=== PATIENT | female | born 1940 | race Caucasian/White ===

== ENCOUNTER 2019-10-16 09:34 | Outpatient (CLI) | payer MEDICARE, SELFPAY ==
--- NOTE | ~2019-10-16 | DEXA_ITS ---
Bone Density Report Name: Nai Medeiros Age: 79 Sex: Female Ethnicity: White Date of : 1940 Indication: postmenopausal; height loss; Referring Provider: DONNY FIELD Study: Bone densitometry was performed. Exam Date: October 16, 2019 Accession number: [id number] Bone Density: Region BMD T-score Z-score Classification AP Spine (L1-L4) 0.976 -0.6 1.9 Normal Femoral Neck (Left) 0.650 -1.8 0.4 Osteopenia Total Hip (Left) 0.820 -1.0 1.0 Normal Total Hip Bilateral Avg 0.841 -0.8 1.2 Normal Femoral Neck (Right) 0.654 -1.8 0.5 Osteopenia Total Hip (Right) 0.862 -0.7 1.3 Normal World Health Organization criteria for BMD impression classify patients as: Normal (T-score at or above -1.0), Osteopenia (T-score between -1.0 and -2.5), or Osteoporosis (T-score at or below -2.5). 10-year Fracture Risk(1): Major Osteoporotic Fracture 12% Hip Fracture 3.2% Reported Risk Factors: [place] (), Neck BMD=0.654, BMI=21.7 (1) FRAX(R) Version 3.08. Fracture probability calculated for an untreated patient. Fracture probability may be lower if the patient has received treatment. Clinical Information Provided by Patient: Has used the following medications: Vitamin D, Calcium Patient maximum height was 62 Menopause Age: 51 Drinks caffeinated beverages Onset of menses at age 13 Number of children 2 Impression: The patient has low bone mass, based on the Left Femoral Neck T-score. The patient has an estimated ten-year risk of hip fracture of 3.2% and an estimated ten-year risk of major fracture of 12%, based on the WHO FRAX algorithm. Discussion: BONE DENSITY IS LOW AT ONE OR MORE SKELETAL SITES. THE PATIENT'S BMD AND CLINICAL RISK FACTORS CONTRIBUTE TO THIS PATIENT'S INCREASED RISK OF FRACTURE. This patient's lowest T-score is low at one or more skeletal sites. It meets the World Health Organization's (WHO) criteria for ?low bone mass? (T-score between -1.0 and -2.5). The patient's 10-year risk of hip fracture as calculated by FRAX exceeds the threshold where pharmacological therapy is recommended by the National Osteoporosis Foundation (NOF). However, all treatment decisions require clinical judgment and consideration of individual patient factors, including patient preferences, comorbidities, previous drug use, risk factors not captured in the FRAX model (e.g., frailty, falls, vitamin D deficiency, increased bone turnover, interval significant decline in bone density) and possible under or overestimation of fracture risk by FRAX. The patient should follow a healthful lifestyle (good nutrition with adequate calcium and vitamin D, and appropriate weight-bearing exercise). Follow-Up: Consider a repeat BMD and Vertebral Fracture Assessment (VFA) exam in 2 years or sooner if medically necessary, to reassess this
--- NOTE | ~2019-10-16 | MM_ITS ---
EXAMINATION: MM screening patric BI w patrica HISTORY: Screening mammogram TECHNIQUE: Craniocaudal and mediolateral oblique 3-D tomosynthesis images were obtained and synthetic 2-D images were generated. CAD analysis was submitted and interpreted. COMPARISON: Comparison to multiple prior studies sequentially, with oldest reviewed study dated 03/24. BREAST PARENCHYMAL COMPOSITION: There are scattered areas of fibroglandular density. FINDINGS: There is no evidence of suspicious mass, calcification, or architectural distortion to sugg est malignancy in either breast. There has been no suspicious interval change. IMPRESSION: 1. No mammographic evidence of malignancy. 2. Recommend routine screening mammography in one year. BI-RADS Category 1: Negative Reviewed, dictated and finalized at location A.
== END 2019-10-16 09:35 | disposition home or self-care (01) ==
PROVIDERS: PCP Internal Medicine; Visit Provider Obstetrics & Gynecology
DX: Z12.31 Encounter for screening mammogram for malignant neoplasm of breast (principal); Z78.0 Asymptomatic menopausal state; M85.852 Other specified disorders of bone density and structure, left thigh; M85.851 Other specified disorders of bone density and structure, right thigh
CPT/HCPCS: 77063; 77067; 77080

== ENCOUNTER → 2020-11-10 11:35 | Outpatient (CLI) | payer MEDICARE, SELFPAY ==
--- NOTE | ~2020-11-10 | MM_ITS ---
EXAMINATION: MM screening patric BI w patrica HISTORY: Screening mammogram TECHNIQUE: Craniocaudal and mediolateral oblique 3-D tomosynthesis images were obtained and synthetic 2-D images were generated. CAD analysis was submitted and interpreted. COMPARISON: 10/16/2019 bilateral digital screening mammogram 06/13/2018 diagnostic left mammogram and limited left breast ultrasound examination 06/04/2018 bilateral digital screening mammogram BREAST PARENCHYMAL COMPOSITION: There are scattered areas of fibroglandular density. FINDINGS: There is focal asymmetry in the mid and upper outer right breast. Otherwise there is no evidence of suspicious mass, calcification, or architectural distortion to sugg est malignancy in either breast. There has been no other suspicious interval change. IMPRESSION: 1. Mammographic asymmetry in the mid to upper outer right breast 2. Diagnostic right mammogram is recommended with ultrasound if required BI-RADS Category 0: Incomplete: Needs additional imaging evaluation. Reviewed, dictated and finalized at location A.
== END ==
PROVIDERS: PCP Internal Medicine; Visit Provider Obstetrics & Gynecology
DX: Z12.31 Encounter for screening mammogram for malignant neoplasm of breast (principal); R92.8 Other abnormal and inconclusive findings on diagnostic imaging of breast
CPT/HCPCS: 77063; 77067

== ENCOUNTER 2020-11-12 11:14 | Outpatient (CLI) | payer MEDICARE, SELFPAY ==
--- NOTE | ~2020-11-12 | MMUS_ITS ---
EXAMINATION: MM diagnostic mammo unilat RT, US breast RT limited HISTORY: Focal mammographic asymmetry in the mid upper outer right breast TECHNIQUE: Additional 3-D tomosynthesis images of the right breast were performed and synthetic 2-D i mages were generated. CAD analysis was submitted and interpreted. High resolution upper outer and low er-outer right breast ultrasound was performed. COMPARISON: 11/10/2020 bilateral digital screening mammogram FINDINGS: MAMMOGRAPHIC FINDINGS: There is subtle focal asymmetry/architectural distortion in the mid to upper outer right breast. ULTRASOUND: Right breast 11:00 3 cm from nipple: There is an irregular hypoechoic 4.9 mm lesion with posterior sh adowing, suspicious for small malignancy. Ultrasound-guided biopsy is recommended. No other significant sonographic finding is noted in the outer half of the right breast. IMPRESSION: 1. 5 mm irregular hypoechoic sonographic mass with posterior shadowing at 11:00 3 cm from nipple 2. Ultrasound-guided biopsy is recommended. BI-RADS category 4, suspicious findings. Dr. Rodriguez telephoned the report and ultrasound-guided biopsy recommendation to Dr. Diaz's Medical As sistant's voicemail on 11/12/2020 at 1320 hours Reviewed, dictated and finalized at location A. IMPRESSION: 1. 5 mm irregular hypoechoic sonographic mass with posterior shadowing at 11:00 3 cm from nipple 2. Ultrasound-guided biopsy is recommended. BI-RADS category 4, suspicious findings. Dr. Rodriguez telephoned the report and ultrasound-guided biopsy recommendation to Truong Diaz's Spinner [employer]draulic's voicemail on 11/12/2020 at 1320 hours
== END 2020-11-12 11:15 | disposition home or self-care (01) ==
LOC: ANHIMG 11:18
PROVIDERS: PCP Internal Medicine; Visit Provider Obstetrics & Gynecology
DX: N63.11 Unspecified lump in the right breast, upper outer quadrant (principal)
CPT/HCPCS: 76642; 77065

== ENCOUNTER 2021-12-28 08:59 | Outpatient (CLI) | payer MEDICARE, SELFPAY ==
--- NOTE | ~2021-12-28 | DEXA_ITS ---
Bone Density Report Name: JD GENAO Age: 81 Sex: Female Ethnicity: White Date of : 1940 Indication: postmenopausal; screening for osteoporosis; height loss; cancer; Referring Provider: HARDY PARKER Study: Bone densitometry was performed. Exam Date: December 28, 2021 Accession number: [id number] Bone Density: Region BMD T-score Z-score Classification AP Spine(L1-L4) 0.986 -0.6 2.1 Normal Femoral Neck (Left) 0.674 -1.6 0.7 Osteopenia Total Hip (Left) 0.809 -1.1 1.0 Osteopenia Femoral Neck (Right) 0.670 -1.6 0.7 Osteopenia Total Hip (Right) 0.841 -0.8 1.3 Normal Total Hip Mean 0.825 -1.0 1.2 Normal World Health Organization criteria for BMD impression classify patients as: Normal (T-score at or above -1.0), Osteopenia (T-score between -1.0 and -2.5), or Osteoporosis (T-score at or below -2.5). 10-year Fracture Risk(1): Major Osteoporotic Fracture 13% Hip Fracture 3.4% Reported Risk Factors: [place] (), Neck BMD=0.670, BMI=21.7 (1) FRAX(R) Version 3.08. Fracture probability calculated for an untreated patient. Fracture probability may be lower if the patient has received treatment. Previous Exams: Region Exam Age BMD T-score BMD Change BMD Change Date g/cm2 vs Baseline vs Previous AP Spine (L1-L4) 12/28/2021 81 0.986 -0.6 0.010 (1.1%) 0.010 (1.1%) 10/16/2019 79 0.976 -0.6 Total Hip(Left) 12/28/2021 81 0.809 -1.1 -0.010 (-1.2%) -0.010 (-1.2%) 10/16/2019 79 0.820 -1.0 Total Hip(Right) 12/28/2021 81 0.841 -0.8 -0.022 (-2.5%) -0.022 (-2.5%) 10/16/2019 79 0.862 -0.7 *Denotes significance at 95% confidence level, LSC for AP Spine = 0.022 g/cm2, LSC for Total Hip = 0.027 g/cm2 Clinical Information Provided by Patient: Has used the following medications: Vitamin D, Calcium Has the following medical conditions: Cancer Patient maximum height was 62 Menopause Age: 51 Onset of menses at age 13 Number of children 2 Impression: The patient has low bone mass, based on the Left Femoral Neck T-score. The patient has an estimated ten-year risk of hip fracture of 3.4% and an estimated ten-year risk of major fracture of 13%, based on the WHO FRAX algorithm. No significant bone loss was observed. Discussion: BONE DENSITY IS LOW AT ONE OR MORE SKELETAL SITES. THE PATIENT'S BMD AND CLINICAL RISK FACTORS CONTRIBUTE TO THIS PATIENT'S INCREASED RISK OF FRACTURE. This patient's lowest T-s
== END 2021-12-28 09:00 | disposition home or self-care (01) ==
PROVIDERS: PCP Internal Medicine; Visit Provider Obstetrics & Gynecology
DX: Z78.0 Asymptomatic menopausal state (principal); M85.89 Other specified disorders of bone density and structure, multiple sites
CPT/HCPCS: 77080

== ENCOUNTER 2024-07-19 12:55 | Outpatient (CLI) | payer MEDICARE, SELFPAY | END 2024-07-19 12:56 | disposition home or self-care (01) | LOC: ANHIMG 13:04 | PROVIDERS: PCP Internal Medicine | DX: M85.88 Other specified disorders of bone density and structure, other site (principal); C50.411 Malignant neoplasm of upper-outer quadrant of right female breast; Z17.0 Estrogen receptor positive status [ER+]; Z79.811 Long term (current) use of aromatase inhibitors | CPT/HCPCS: 77080 ==

== ENCOUNTER 2025-02-18 14:20 | Outpatient (CLI) | payer MEDICARE, SELFPAY ==
--- OUTSIDE RECORDS SUMMARY | 2023-10-13 10:40 | XMS_ITS ---
Author Organization [facility] Address [address] [place], [place] [id number] Care Team Providers Care Racing Board Marker Name Role Phone Adam Mock Primary Care Provider Unavailabl KHANH Payne [phone] REASON FOR VISIT R ft blisters Encounters Encounter Location Date Provider Diagnosis [facility] [place] [address] [facility] [address] [place], [place] [id number] 10/13/2023 KHANH MANCIA Plan Of Treatment Next Appt Details Provider Name:KHANH STAFFORDKeiko, 03:20:00 PM, [address], [facility], [place], [place], [id number], Progress Notes * Nai MEDEIROSDOB:1940 (84 yo F)Acc No.[id number]:10/13/2023 Patient: Nai MONROE Provider: Rajiv Mancia DPM :1940 A ge:83 Y S ex:Female Date:10/13/2023 Address:[address], [place], [place] Pcp:Adam Mock Subjective: * Chief Complaints: * 1 . R ft blisters. * Medical History: Objective: * Vitals: Assessment: Plan: * Treatment: * Billing Information: * Visit Code: * Procedure Codes: * Electronic signature of KHANH MANCIA DPM on 02/18/2025 at 02:35 PM CDT Sign off status: Pending * Provider: Rajiv Mancia DPM Date: 0 10/13/2023 Generated for Keenan benoit/Timoteo/Hui on: 0 02/18/2025 02:35 PM CDT
--- OUTSIDE RECORDS SUMMARY | 2024-01-15 08:20 | XMS_ITS ---
Author Organization [facility] Address [address] [place], [place] [id number] Care Team Providers Care Wine Cellar Stock Clerk Name Role Phone Adam Mock Primary Care Provider Unavailabl KHANH Payne Unavailable [phone] KHANH LARA Unavailable [phone] REASON FOR VISIT *General care Encounters Encounter Location Date Provider Diagnosis [facility] [place] [address] [place], [place] [id number] 01/15/2024 KHANH LARA Plan Of Treatment Next Appt Details Provider Name:KHANH LARA, 03:20:00 PM, [address], [place], [place], [id number], Progress Notes * Nai MEDEIROSDOB:1940 (84 yo F)Acc No.[id number]:01/15/2024 Patient: Nai MONROE Provider: Rajiv Lara DPM :1940 A ge:83 Y S ex:Female Date:01/15/2024 Address:[address] , [address], [place], [place] Pcp:Adam Mock Subjective: * Chief Complaints: * 1 . *General care. * Medical History: Objective: * Vitals: Assessment: Plan: * Treatment: * Billing Information: * Visit Code: * Procedure Codes: * Electronic signature of KHANH LARA DPM on 02/18/2025 at 02:35 PM CDT Sign off status: Pending * Provider: Rajiv Lara DPM Date: 01/15/2024 Generated for Keenan Flores on: 0 02/18/2025 02:35 PM CDT
--- OUTSIDE RECORDS SUMMARY | 2025-02-03 08:30 | XMS_ITS ---
Author Organization [facility] Address [address] [place], [place] [id number] Care Team Providers Care Levelman Name Role Phone Adam Mock Primary Care Provider UnavailKHANH Carpenter Unavailable [phone] KHANH LARA Unavailable [phone] Allergies Allergen (clinical drug ingredient) Drug/Non Drug Allergy documented on EMR Reaction Allergy Type Onset Date Status Substance with sulfonamide structure and antibacterial mechanism of action (substance) Sulfa Antibiotics Unknown Drug Allergy Active REASON FOR VISIT Patient presents for at-risk foot care . The patient has painful toenails and calluses that are causing difficulty with ambulation and shoegear. The onset is gradual Vital Signs Height 61 in 02/03/2025 Weight 115 lbs 02/03/2025 BMI 21.73 kg/m2 02/03/2025 Height-cm 154.94 cm 02/03/2025 Weight-kg 52.16 kg 02/03/2025 Encounters Encounter Location Date Provider Diagnosis [facility] [place] [address] [place], [place] [id number] 02/03/2025 KHANH LARA Tinea unguium B35.1 ; Acquired keratosis [keratoderma] palmaris et plantaris L85.1 ; Atherosclerosis of [place] arteries of extremities with intermittent claudication, bilateral legs I70.213 ; Pain in right foot M79.671 and Pain in left foot M79.672 Assessments Encounter Date Diagnosis (ICD Code) Assessment Notes Treatment Notes Treatment Clinical Notes Section Notes 02/03/2025 Tinea unguium (ICD-10 - B35.1) Nails 1-5 Bilateral were debrided extensively with nail nippers and emery board, reducing length and girth to pink healthy tissue with any subungual debris and necrotic tissue removed 02/03/2025 Acquired keratosis [keratoderma] palmaris et plantaris (ICD-10 - L85.1) A total of 4 corns or calluses, as described in the note above, were cut and pared utilizing a #15 blade 02/03/2025 Atherosclerosis of [place] arteries of extremities with intermittent claudication, bilateral legs (ICD-10 - I70.213) 02/03/2025 Pain in right foot (ICD-10 - M79.671) 02/03/2025 Pain in left foot (ICD-10 - M79.672) Plan Of Treatment Treatment Notes Assessment Notes Tinea unguium Nails 1-5 Bilateral were debrided extensively with nail nippers and emery board, reducing length and girth to pink healthy tissue with any subungual debris and necrotic tissue removed Acquired keratosis [keratode rma] palmaris et plantaris A total of 4 corns or calluses, as described in the note above, were cut and pared utilizing a #15 blade Next Appt Details Follow Up: 10 - 12 weeks, Re ason: At-Risk Foot care, sooner if problems develop. Provider Name:KHANH LARA, 03:20:00 PM, [address], [address], [id number], Progress Notes * Nai MEDEIROSDOB:1940 (84 yo F)Acc No.[id number]:02/03/2025 Patient: Nai MONROE Provider: Rajiv Lara DPM :1940 A ge:84 Y S ex:Female Date:02/03/2025 Address:[address] [place] [address] , [address] Pcp:Adam Mock Subjective: * Chief Complaints: * 1 . Patient presents for at-risk foot care . The patient has painful toenails and calluses that are causing difficulty with ambulation and shoegear. The onset is gradual. * HPI: H PI: General care P atmarcelina presents to the office for at risk foot care. Patient states that their nails are thickened, elongated and painful. Patient states that it is aggravated by shoe gear. Onset is gradual. Patient denies being diabetic., Patient denies taking blood thinners., Date last seen by Dr. Mock was November 2024., Initials IR. * ROS: G eneral / Constitutional: Patient denies c hills, fever, weakness, night sweats. C ardiovascular: Patient denies e deirdre, shortness of breath, leg or foot ulcers. M usculoskeletal: Patient denies c hildhood foot problems, weakness. P atient complains of a rthritis, joint pain. P eripheral Vascular: Patient denies u lceration of feet, cold extremities. ? S kin: Patient denies u lcerations, discoloration. P atient complains of f ungal nails, nail changes, calluses and corns. N eurologic: Patient denies b alance difficulty, confusion, difficulty speaking, dizziness. * Medical History: M edical History Verified. * Family History: N o Family History documented.. * Medications: N one * Allergies: S ulfa Antibiotics. Objective: * Vitals: S hoe Size: 8, Wt: 115 lbs, Wt-k.16 kg, Ht: 61 in, Ht-cm: 154.94 cm, BMI: 21.73 Index, Body Surface Area: 1.5. * Examination: C onstitutional: Constitutional T he patient is awake, alert, well developed, well groomed and well nourished.. D ermatologic: Skin findings: S kin is warm, dry, supple with no breaks in the skin.. Hypertrophic / hyperkeratotic lesion: p lantar aspect of the hallux bilteral, plantar aspect of the 5th metatarsal head bilateral. Nail pathology: N ails 1-5 bilateral are elongated, thick, discolored, and dystrophic with subungual debris. They are painful to palpation. The left hallux toenail has ridges and is incurvated. V ascular: Dorsalis pedis pulse: 1 /4, bilateral. Posterior tibial pulse: 1 /4, bilaterally. Capillary refill: l ess than 3 seconds. Edema: N o edema, bilateral. N eurologic: Gross sensation G ross sensation is intact to light touch..? M usculoskeletal: Muscle Strength M uscle strength is 5/5 in regards to dorsiflexion, plantarflexion, inversion, and eversion in bilateral lower extremities. Hypertrohpic bone to the dorsal aspect of the 1st metatarsalcuneiform joint bilateral, left greater than right.? Pain on palpation 5 th metatarsal heads bilateral, left greater than right. Foot Structure T he foot structure is noted to be planus with weightbearing. Assessment: * Assessment: 1. T inea unguium - B35.1 (Primary) 2 . A cquired keratosis [keratoderma] palmaris et plantaris - L85.1 3 . A therosclerosis of [place] arteries of extremities with intermittent claudication, bilateral legs - I70.213 4 . P ain in right foot - M79.671 5 . P ain in left foot - M79.672 Plan: * Treatment: 2. A cquired keratosis [keratoderma] palmaris et plantaris Notes: A total of 4 corns or calluses, as described in the note above, were cut and pared utilizing a #15 blade * Preventive Medicine: Screenings: F all risk screening F all Risk Assessment: N o falls in the past year. * Follow Up: 1 0 - 12 weeks (Reason: At-Risk Foot care, sooner if problems develop.) * Billing Information: * Visit Code: 57208 Office Visit, Est Pt., Level 3. * Procedure Codes: * Electronic signature of KHANH LARA DPM on 02/18/2025 at 02:34 PM CDT Sign off status: Pending * Provider: Rajiv Lara DPM Date: 02/03/2025 Generated for Keenan Braga/Hui on: 02/18/2025 02:34 PM CDT History and Physical Notes * HPI (History of Present Illness) Category Sub-Category Detail Notes Category Not es HPI General care Patient presents to the office for at risk foot care. Patient states that their nails are thickened, elongated and painful. Patient states that it is aggravated by shoe gear. Onset is gradual. Patient denies being diabetic., Patient denies taking blood thinners., Date last seen by Dr. Mock was November 2024., Initials IR Examination Category Sub-Category Detail Notes Category Not es Dermatologic Skin findings: Skin is warm, dr hinojosa, supple with no breaks in the skin. Nail pathology: Nails 1-5 bilateral are elongated, thick, discolored, and dystrophic with subungual debris. They are painful to palpation. The left hallux toenail has ridges and is incurvated Hypertrophic / hyperkeratotic lesion: pl pasquale aspect of the hallux bilteral, plantar aspect of the 5th metatarsal head bilateral Neurologic Gross sensation Gross sensation is intact to light touch. Vascular Dorsalis pedis pulse: 1/4, bilateral Edema: No edema, bilateral Capillary refill: less than 3 seconds Posterior tibial pulse: 1/4, bilaterally Musculoskeletal Muscle Strength Muscle strength is 5/5 in regards to dorsiflexion, plantarflexion, inversion, and eversion in bilateral lower extremities. Hypertrohpic bone to the dorsal aspect of the 1st metatarsalcuneiform joint bilateral, left greater than right Pain on palpation 5th metatarsal heads bilateral, left greater than right Foot Structure The foot structure i s noted to be planus with weightbearing Constitutional Constitutional The patient is a wake, alert, well developed, well groomed and well nourished.
--- OUTSIDE RECORDS SUMMARY | 2025-02-18 13:30 | XMS_ITS | Encounter Summary ---
Author Organization [facility] Address [address] [place] [address] Care Team Providers Care Service Station Equipment Mechanic Name Role Phone Unavailable Primary Care Provider Unavailabl e Encounter Details Date Type Department Care Team (Late st Contact Info) Description 02/18/2025 1:30 PM CDT Office Visit [facility] Oncology and Hematology - [place] [address] [facility] [address] [place] [address] Gilberto Rivera MD [address] [facility] [address] [place] [address] Chronic anemia (Primary Dx) Social History Tobacco Use Types Packs/Day Years Used Date Smoking Tobacco: Never Smokeless Tobacco: Never Alcohol Use Standard Drinks/Week Comments Yes 2 (1 standard drink = 0.6 oz pur e alcohol) 2 glasses of wine daily Comments Unknown Sex and Gender Information Value Date Recorded Sex Assigned at Not on file Legal Sex Female 1:45 PM CDT Gender Identity Not on file Sexual Orientation Not on file documented as of this encounter Last Filed Vital Signs Vital Sign Reading Time Taken Comments Blood Pressure 144/81 02/18/2025 1:55 PM CDT Pulse 72 02/18/2025 1:51 PM CDT Temperature 36.1 C (96.9 F) 02/18/2025 1:51 PM CDT Respiratory Rate 16 02/18/2025 1:51 PM CDT Oxygen Saturation 91% 02/18/2025 1:51 PM CDT Inhaled Oxygen Concentration - - Weight 54.8 kg (120 lb 12.8 oz) 02/18/2025 1:51 PM CDT Height 152.4 cm (5') 02/18/2025 1:51 PM CDT Body Mass Index 23.59 02/18/2025 1:51 PM CDT documented in this encounter Plan of Treatment Upcoming Encounters Date Type Department Care Team (Late st Contact Info) Description 02/25/2025 4:30 PM CDT Telephone Check Up [facility] Oncology and Hematology - [place] [address] [facility] [address] [place] [address] Gilberto Rivera MD [address] [facility] [address] [place] [address] Scheduled Orders Name Type Priority Associated Diagnoses Orde r Schedule CBC WITH DIFFERENTIAL Lab Stat Chronic anemia Expected: 02/18/2025, Expires: 02/18/2026 COMPREHENSIVE METABOLIC PANEL Lab Stat Chronic anemia Expected: 02/18/2025, Expires: 02/18/2026 FERRITIN Lab Routine Chronic anemia Expected: 02/18/2025, Expires: 02/18/2026 IRON, TIBC, AND PERCENT SATURATION Lab Routine Chronic anemia Expected: 02/18/2025, Expires: 02/18/2026 METHYLMALONIC ACID Lab Routine Chronic anemia Expected: 02/18/2025, Expires: 02/18/2026 LACTATE DEHYDROGENASE Lab Routine Chronic anemia Expected: 02/18/2025, Expires: 02/18/2026 TRANSFERRIN RECEPTOR TFR SOLUBLE Lab Routine Chronic anemia Expected: 02/18/2025, Expires: 02/18/2026 VITAMIN B12 AND FOLATE Lab Routine Chronic anemia Expected: 02/18/2025, Expires: 02/18/2026 PROTEIN ELECTROPHORESIS W/REFLEX,SERUM Lab Routine Chronic anemia Expected: 02/18/2025, Expires: 02/18/2026 documented as of this encounter Visit Diagnoses Diagnosis Chronic anemia- Primary Anemia, unspecified documented in this encounter
--- OUTSIDE RECORDS SUMMARY | 2025-02-18 14:34 | XMS_ITS | Clinical Summary ---
Author Organization [facility] Ruel michael Brice Address [address] [place] [address] Care Team Providers Care Pot Builder Name Role Phone Unavailable Primary Care Provider Unavailabl e Allergies Active Allergy Reactions Criticality Noted Date Comments Sulfa (Sulfonamide Antibiotics) Hives High 01/22 Medications anastrozole (ARIMIDEX) 1 mg tablet Take 1 mg by mouth daily. 06/12/2024 Active escitalopram oxalate (LEXAPRO) 20 mg tablet Take 20 mg by mouth daily. 10/28/2024 Active levothyroxine 100 mcg tablet Take 100 mcg by mouth daily in the morning. 06/05/2024 Active mirabegron (Myrbetriq) 50 mg Extended Release 24 hour tablet Take 50 mg by mouth daily in the morning. 07/17/2024 Active cholecalciferol, vitamin D3, 1,000 unit Take 1,000 Units by mouth daily at bedtime. Active calcium CARBONATE-vitami n D3 (CALTRATE 600 + D) 600 mg-800 unit Tablet Take 1 Tablet by mouth 2 times daily. Active loratadine (CLARITIN) 10 mg tablet Take 10 mg by mouth daily at bedtime. Active Active Problems No known active problems Encounters Date Type Department Care Team Description 02/18/2025 1:30 PM CDT Office Visit [facility] Oncology and Hematology - [place] [address] [place] [address] Gilberto Rivera MD Chronic anemia (Primary Dx) from Last 3 Months Family History Medical History Relation Name Comments No Known Problems Brother Diabetes Child 1 Eye cancer Child 2 No Known Problems Father Colon Cancer Mother No Known Problems Sister Relation Name Status Comments Brother Child 1 Alive Child 2 Alive Father Mother Sister Alive Social History Tobacco Use Types Packs/Day Years [...] on file Sexual Orientation Not on file Last Filed Vital Signs Vital Sign Reading [...] Mass Index 23.59 02/18/2025 1:51 PM CDT Plan of Treatment Upcoming Encounters Date Type Department Care Team (Late st Contact Info) Description 02/25/2025 4:30 PM CDT Telephone Check Up [facility] Oncology and Hematology - [place] [address] [place] [address] [facility] [address] [place] [address] Gilberto Rivera MD [address] [facility] [address] [place] [address] Health Maintenance Due Date Last Done Comments DTAP/TDAP/TD VACCINES (1 - Tdap) 1960 OSTEOPOROSIS SCREENING 2006 RSV VACCINE (60+ or ) (1 - 1-dose 75+ series) 2016 [place] Preventative Visit/Annual Wellness Visit 05/22/2024 INFLUENZA VACCINE (#1) 2024 , 01/25/2023, 01/27/2022, Additional history exists COVID-19 Vaccine (3 - 2024-2 6 season) 2025 08/10/2020, 07/09/2020 PNEUMOCOCCAL VACCINE 50+ YEARS Completed 0 07/29/2022, 07/28/2022, 04/06/2020 ZOSTER VACCINE Completed 08/05/2024, 06/22, 05/06/2018 Insurance [facility] [id number] [facility] Address: [facility] [address] [place] [address]
--- OUTSIDE RECORDS SUMMARY | 2025-02-18 14:34 | XMS_ITS | Clinical Summary ---
Author Organization [facility] Medical [facility] [place] [address] [facility] [place] [address] Care Team Providers Care Traffic Maintenance Officer Name Role Phone Adam Mock MD Primary Care Provider [phone] Yuliya Oliveira MD PhD Unavailable [phone] Joanie Crawley MD Unavailable [phone] Allergies Active Allergy Reactions Criticality Noted Date Comments Sulfa (Sulfonamide Antibiotics) Hives,Redness Medium 0 12/23/1976 Medications loratadine (CLARITIN) 10 mg tabletIndicatio ns:Allergic Rhinitis Take 1 tablet (10 mg total) by mouth nightly Active multivitamin capsuleIndicati ons:Vitamin Deficiency Prevention Take 1 capsule by mouth nightly Active calcium carbonate-vitam in D3 1,500 mg (600mg elemental) -800 unit per tabletIndicatio ns:Vitamin D Deficiency Take 1 tablet by mouth 2 (two) times a day Active cholecalciferol (VITAMIN D-3) 1,000 unit (25 mcg) tabletIndicatio ns:Vitamin D Deficiency Take 1 tablet (1,000 Units total) by mouth nightly Active chlorhexidine (PERIDEX) 0.12 % solution Apply to the mouth or throat nightly 02/28/2019 Active docusate sodium (COLACE) 100 mg capsuleIndicati ons:constipatio n Take 1 capsule (100 mg total) by mouth 2 (two) times a day with a glass of water 30 capsule 01/11/2021 Active ascorbic acid (VITAMIN C) 100 mg tablet Take 1 tablet (100 mg total) by mouth 2 (two) times a day Active levothyroxine (SYNTHROID) 100 mcg tablet TAKE 1 TABLET BY MOUTH DAILY 90 tablet 3 06/05/2024 Active anastrozole (ARIMIDEX) 1 mg tabletIndicatio ns:Malignant neoplasm of upper-outer quadrant of right breast in female, estrogen receptor positive (HCC) Take 1 tablet (1 mg total) by mouth daily 90 tablet 3 06/12/2024 Active Myrbetriq 50 mg tablet extended release 24 hr TAKE 1 TABLET BY MOUTH IN THE MORNING 90 tablet 3 07/17/2024 Active escitalopram (LEXAPRO) 20 mg tablet TAKE 1 TABLET BY MOUTH DAILY 90 tablet 3 10/28/2024 Active Active Problems Problem Noted Date Diagnosed Date Abnormal finding on breast imaging 12/11/2024 Anxiety 11/29/2023 Overview (07/26/2024): Stable on Lexapro doing well. Hyperlipidemia 01/27/2023 Assessment & Plan (07/26/2024 10:18 AM CONCRETE GUN OPERATOR): Lipid reviewed doing well. Assessment & Plan (01/27/2023 10:30 AM CDT): Lipids at goal Continue with lifestyle modifications Acquired hypothyroidism 01/27/2023 Assessment & Plan (07/26/2024 10:18 AM CONCRETE GUN OPERATOR): Check labs. Assessment & Plan (01/27/2023 10:31 AM CDT): July 2022 labs WNL Clinically euthyroid Continue 100mcg LVT daily Overactive bladder 01/27/2023 Assessment & Plan (07/26/2024 10:18 AM CONCRETE GUN OPERATOR): Continue on Myrbetriq. Assessment & Plan (10/31/2023 3:39 PM CDT): We did discuss patient's symptoms of overactive bladder today. She would like to continue on her medication. We did discuss Kegel exercises and she was given an informational handout. If she does want to pursue a referral to pelvic floor therapy, she will notify my office. Assessment & Plan (01/27/2023 10:31 AM CDT): Myrbetriq ER 50mg Discussed implementing some bladder training Unspecified cataract 01/27/2023 Assessment & Plan (01/27/2023 10:32 AM CDT): Cleared for extraction Encounter for follow-up exam ination after completed treatment for malignant neoplasm 03/25/2021 Personal history of irradiation 03/25/2021 longterm current use of aromatase inhibitor 08/2020 Malignant neoplasm of upper- outer quadrant of right breast in female, estrogen receptor positive 12/16/2020 Cancer Staging:Pathologic stage from 01/11/2021:Stage IA(pT1b, pN0(sn), cM0, G2, ER+, IL+, HER2-) - Signed by Yoan Hernandez MD on 02/08/2021 Assessment & Plan (07/26/2024 10:18 AM CONCRETE GUN OPERATOR): Stable doing well. Follows with Oncology. Remains on anastrozole. He had recent DEXA scan doing well Calculus of gallbladder with out cholecystitis without obstruction 01/25/2019 Overview (01/25/2019): Added automatically from request for surgery [id number] Resolved Problems Problem Noted Date Diagnosed Date Resolved Date Personal history of malignan t neoplasm of breast 03/25/2021 01/24/2025 Assessment & Plan (10/31/2023 3:38 PM CDT): Patient presents today to establish care with Gynecology. We discussed proceeding with pelvic exam today, however patient is comfortable with deferring and would like to notify us with any problems. I did encourage her to call us with any postmenopausal bleeding or pelvic pain. Patient is agreeable and will see us as needed. Breast mass, right 11/30/2020 Encounters Date Type Department Care Team Description 01/24/2025 10:30 AM CDT Office Visit [facility] [address] [facility] [address] [place] [phone] Adam Mock MD Acquired hypothyroidism (Primary Dx); Immunization due; Mixed hyperlipidemia; Anxiety; Malignant neoplasm of upper-outer quadrant of right breast in female, estrogen receptor positive (HCC) 01/24/2025 8:30 AM CDT Office Visit [facility] Medicine Oncology [address] 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) [address] [place] [id number] Miracle Bhakta RN Surgical pathology 12/25/2024 3:12 PM CDT - 12/25/2024 11:59 PM CDT Hospital Encounter [facility] ([facility]) [address] [place] [id number] Abnormal mammogram Discharge Disposition: Discharge to home or self care 12/25/2024 2:19 PM CDT - 12/25/2024 11:59 PM CDT Hospital Encounter [facility] ([facility]) [address] [place] [phone] Abnormal mammogram Discharge Disposition: Discharge to home or self care 12/11/2024 8:59 AM CDT - 12/11/2024 11:59 PM CDT Hospital Encounter [facility] - Breast Imaging [facility] [facility] Floor [address] [place] [address] Mass of right breast, unspecified quadrant; Other abnormal and inconclusive findings on diagnostic imaging of breast Discharge Disposition: Discharge to home or self care 12/11/2024 8:10 AM CDT - 12/11/2024 11:59 PM CDT Hospital Encounter [facility] - Breast Imaging [facility] Floor [address] [place] [address] Mass of right breast, unspecified quadrant Discharge Disposition: Discharge to home or self care 12/11/2024 8:00 AM CDT [facility] [address] [facility] [address] [place] [address] Desiree Meza PA Abnormal finding on breast imaging (Primary Dx); Malignant neoplasm of upper-outer quadrant of right breast in female, estrogen receptor positive (HCC); History of breast cancer 11/26/[address] [facility] [address] [facility] [address] [place] [address] Maria Antonia Rey CMA 11/26/[address] [facility] [address] [facility] [address] [place] [phone] Desiree Meza PA Mass of right breast, unspecified quadrant (Primary Dx) from Last 3 Months Immunizations Immunization Administration Dates Next Due Influenza, Quad, Adjuvantate d, Intramuscular 01/25/2023,01/27/2022 Influenza, Quadrivalent, Hig h Dose, Preservative Free, Intrr 02/22/2021,01/26/2020 Influenza, Trivalent, High D ose, Split, Preservative Free, Intramuscular 02/12/2024,02/27/2019,02/18/2018 Moderna SARS-CoV-2 Monovalen t Vaccination (12+ YRS) 08/10/2020,07/09/2020 Pneumococcal Conjugate PCV 13 04/06/2020 Pneumococcal Conjugate Pcv20 07/29/2022,07/29/19 23 RSV Vaccine, Pref, Recombina nt, Subunit, Adjuvanted, PF, IM (Arexvy) 02/15/2023 ZOSTER Recombinant 08/05/2024,07/10/2018, 018 Surgical History Surgery Date Site/Laterality Comments OVARY SURGERY Endometrioma SKIN CANCER EXCISION 05/22/2018 - 05/21/2019 BREAST BIOPSY 11/26/2020 Right IDC GALLBLADDER SURGERY CATARACT EXTRACTION 02/13/2023 BREAST LUMPECTOMY 05/22/2020 - 05/21/2021 Right OOPHORECTOMY BREAST BIOPSY 12/25/2024 Right Medical History Medical History Date Comments Skin cancer Hypothyroidism Gallstones Breast cancer (HCC) 11/2020 History of radiation therapy 2020 Family History Medical History Relation Name Comments Ataxia Brother Breast cancer Cousin Pat Cousin Cervical cancer Daughter Melanoma Daughter Ataxia Father Colon cancer Mother Anesthesia problems Neg Hx Relation Name Status Comments Brother Cousin Pat Cousin Daughter Father Mother Social History Tobacco Use Types Packs/Day Years Used Date Smoking Tobacco: Never Passive Smoke Exposure: Never Smokeless Tobacco: Never Tobacco Cessation:Counseling Given: Not Answered Alcohol Use Standard Drinks/Week Comments Yes 10 (1 standard drink = 0.6 oz pu re alcohol) AUDIT-C Answer Date Recorded Q1: How often do you have a drink containing alc ohol? 2-4 times a month 10/31/2023 Q2: How many drinks containi ng alcohol do you have on a typical day when you are drinking? 3 or 4 10/31/2023 Q3: How often do you have si x or more drinks on one occasion? Never 10/31/2023 PHQ-2 Answer Date Recorded PHQ-2 Total Score (If total score is 3 or more points, staff should administer the PHQ-9) 1 10/31/2023 Comments No Sex and Gender Information Value Date Recorded Sex Assigned at Not on file Legal Sex Female 10:55 AM CDT Gender Identity Female 03/05/2021 10:49 PM CDT Sexual Orientation Straight 12/04/2020 3: 29 PM CDT Obstetrics History Para Term AB IAB SAB Ectopic Multiple Livin g Live Births 2 2 2 2 2 Date Outcome GA Total Labor Labor/2nd/3rd Weight Sex Type Anes PTL Blanca A1 A5 Name Clin 04/24 Term 3.175 kg (7 lb) F Vaginal Living 02/09 Term F Vaginal Living Last Filed Vital Signs Vital Sign Reading Time Taken Comments Blood Pressure 108/78 01/24/2025 9:57 AM CDT Pulse 75 01/24/2025 9:57 AM CDT Temperature 36.3 C (97.4 F) 01/24/2025 8:07 AM CDT Respiratory Rate 18 01/24/2025 8:07 AM CDT Oxygen Saturation 98% 01/24/2025 8:07 AM CDT Inhaled Oxygen Concentration - - Weight 54.4 kg (120 lb) 01/24/2025 9:57 AM CDT Height 154.9 cm (5' 1) 01/24/2025 9:57 AM CDT Body Mass Index 22.67 01/24/2025 9:57 AM CDT Plan of Treatment Health Maintenance Due Date Last Done Comments DTaP/Tdap/Td Vaccine (1 - Tdap) 1951 Hepatitis B Screening 1958 Well Visit 65+ 2006 Fall Risk Assessment 07/27/2024 07/28/2023, 02/12/2021, 01/11/2021 Depression Screening 10/30/2024 10/31/2023, 07/28/19 24 Covid-19 Vaccine (2024-06 6 season) 2025 08/05/2024, 01/29/2024, 02/15/2023, Additional history exists Influenza Vaccine (#1) 2025 , 01/25/2023, 01/27/2022, Additional history exists Osteoporosis Screening-Bone Density Scan 07/19/2026 07/19/2024, 12/28/2021 Pneumococcal vaccine 65+ Completed 023, 07/28/2022, 04/06/2020 Zoster Vaccine Completed 08/05/2024, 06/22, 05/06/2018 Medical Devices Implanted Type Area Hand Cloth Folder Device Identifier Shelf Expiration Date Model / Serial / Lot [employer] [id number] Magseed 18ga 7cm Marker Breast Biopsy - [id number] Implanted:Qty: 1 on 01/06/2021 at [facility] Right: Breast [employer] [id number] 07/19/2024 [id number] / / [id number] [employer] Per[employer] Marker Image 10cm 17ga Ultracor Crl Shpd Twirl Brst Strl Lf [id number] - [id number] Implanted:Qty: 1 on 12/25/2024 by Purnima Roland MD at [facility] Right: Breast [employer] [id number] 05/18/2027 [id number] / / [id number] Procedures Procedure Name Priority Date/Time Associated Diagnosis Comments JUAN LUIS POST CLIP PLACEMENT RIGHT Schedule Routine, Read Routine (OP Routine) 12/25/2024 3:25 PM CDT Abnormal mammogram US GUIDED BREAST BIOPSY RIGHT Schedule Routine, Read Routine (OP Routine) 12/25/2024 3:20 PM CDT Abnormal mammogram SURGICAL PATHOLOGY Routine 12/25/2024 3: 09 PM CDT Abnormal mammogram DIAGNOSTIC MAMMOGRAM RIGHT W JUAN LUIS Schedule Routine, Read Routine (OP Routine) 12/11/2024 9:16 AM CDT Mass of right breast, unspecified quadrant Other abnormal and inconclusive findings on diagnostic imaging of breast US BREAST RIGHT LIMITED Schedule Routine, Read Routine (OP Routine) 12/11/2024 8:52 AM CDT Mass of right breast, unspecified quadrant from Last 3 Months Results * Juan Luis Post Clip Placement Right (12/25/2024 3:25 PM CDT) Anatomical Region Laterality Modality Breast Right Mammography 12/25/2024 3:32 PM CDT Addenda Addendum by Mica Moore MD on 12/30/2024 11:31 AM CDT ADDENDUM: Pathology from biopsy of the RIGHT breast showed: Scar tissue Please refer to pathology report for details. Pathology is benign and concordant. Normal interval screening mammography is recommended. Results and recommendations will be discussed with the patient by Breast [facility] or referring provider staff and will be separately documented in the medical record. Electronically signed by: Mica Moore M.D. Impressions 12/25/2024 3:34 PM CDT Successful core needle biopsy of the RIGHT breast. Pathology is pending. ASSESSMENT: Post Procedure Mammograms for Marker Placement Dictated by: Purnima Roland M.D. The radiology attending physician has personally reviewed this study, and had reviewed and/or edited this written report and agrees with it. Electronically signed by: Mica Moore M.D. Narrative 12/25/2024 3:34 PM CDT EXAMINATION: RIGHT BREAST CORE BIOPSY UTILIZING SONOGRAPHIC GUIDANCE, PLACEMENT OF A BIOPSY TISSUE MARKER CLIP, AND RIGHT FULL FIELD DIGITAL MAMMOGRAM WITH DIGITAL BREAST TOMOSYNTHESIS HISTORY: Abnormal breast imaging. 84-year-old woman with prior right breast invasive ductal carcinoma, status post breast conservation therapy in 2020, with a new palpable area at 12:00, 3 cm from the nipple along the surgical scar. Ultrasound guided core needle biopsy is requested to evaluate for malignancy. COMPARISON: Multiple prior studies, most recently 12/11/2024 and dating back to 11/12/2020. BREAST PARENCHYMAL COMPOSITION: There are scattered areas of fibroglandular density. PROCEDURE AND FINDINGS: The risks and potential benefits of the procedures were discussed with the patient and written informed consent was obtained. After sterile preparation of the skin, 1% lidocaine and 2% lidocaine with epinephrine were utilized for local anesthesia. A small skin incision was made with a #11 scalpel blade. A 14G spring-loaded biopsy needle was then advanced through the skin incision to the edge of the lesion of interest at the 12:00, 3 cm from the nipple from a lateral approach utilizing sonographic guidance. A total of 3 tissue cores were obtained through the lesion. A Curl tissue marker clip was then placed at the biopsy site. Hemostasis was achieved. Dermabond bandage and an ice pack were applied. There was no evidence of significant immediate complication. The patient was given verbal as well as written post procedural instructions prior to release from the department. The tissue cores were submitted to surgical pathology in formalin for histologic analysis. A two-view RIGHT digital mammogram, including digital breast tomosynthesis, obtained post procedure demonstrates that the tissue marker clip is in expected position. The attending radiologist, Dr. Mica Moore M.D., was present throughout the entire procedure. Dr. Purnima Roland (radiology fellow) was present and participated in the procedure. Desiree MACHUCA [facility] MAM[facility] PROCEDURES Edited Res ult - Final * US Guided Breast Biopsy Right (12/25/2024 3:20 PM CDT) Anatomical Region Laterality Modality Breast Right Ultrasound 12/25/2024 3:32 PM CDT Addenda Addendum by Mica Moore MD on 12/30/2024 11:31 AM CDT ADDENDUM: Pathology from biopsy of the RIGHT breast showed: Scar tissue Please refer to pathology report for details. Pathology is benign and concordant. Normal interval screening mammography is recommended. Results and recommendations will be discussed with the patient by Breast [facility] or referring provider staff and will be separately documented in the medical record. Electronically signed by: Mica Moore M.D. Impressions 12/25/2024 3:34 PM CDT Successful core needle biopsy of the RIGHT breast. Pathology is pending. ASSESSMENT: Post Procedure Mammograms for Marker Placement Dictated by: Purnima Roland M.D. The radiology attending physician has personally reviewed this study, and had reviewed and/or edited this written report and agrees with it. Electronically signed by: Mica Moore M.D. Narrative 12/25/2024 3:34 PM CDT EXAMINATION: RIGHT BREAST CORE BIOPSY UTILIZING SONOGRAPHIC GUIDANCE, PLACEMENT OF A BIOPSY TISSUE MARKER CLIP, AND RIGHT FULL FIELD DIGITAL MAMMOGRAM WITH DIGITAL BREAST TOMOSYNTHESIS HISTORY: Abnormal breast imaging. 84-year-old woman with prior right breast invasive ductal carcinoma, status post breast conservation therapy in 2020, with a new palpable area at 12:00, 3 cm from the nipple along the surgical scar. Ultrasound guided core needle biopsy is requested to evaluate for malignancy. COMPARISON: Multiple prior studies, most recently 12/11/2024 and dating back to 11/12/2020. BREAST PARENCHYMAL COMPOSITION: There are scattered areas of fibroglandular density. PROCEDURE AND FINDINGS: The risks and potential benefits of the procedures were discussed with the patient and written informed consent was obtained. After sterile preparation of the skin, 1% lidocaine and 2% lidocaine with epinephrine were utilized for local anesthesia. A small skin incision was made with a #11 scalpel blade. A 14G spring-loaded biopsy needle was then advanced through the skin incision to the edge of the lesion of interest at the 12:00, 3 cm from the nipple from a lateral approach utilizing sonographic guidance. A total of 3 tissue cores were obtained through the lesion. A Curl tissue marker clip was then placed at the biopsy site. Hemostasis was achieved. Dermabond bandage and an ice pack were applied. There was no evidence of significant immediate complication. The patient was given verbal as well as written post procedural instructions prior to release from the department. The tissue cores were submitted to surgical pathology in formalin for histologic analysis. A two-view RIGHT digital mammogram, including digital breast tomosynthesis, obtained post procedure demonstrates that the tissue marker clip is in expected position. The attending radiologist, Dr. Mica Moore M.D., was present throughout the entire procedure. Dr. Purnima Roland (radiology fellow) was present and participated in the procedure. Desiree MACHUCA [facility] PROCEDURES Edited Res ult - Final * Surgical pathology (12/25/2024 3:09 PM CDT) Tissue (Breast biopsy, needle core) 12/25/2024 3:09 PM CDT Comment:right breast 12:00 3 cm/fn,3 cores ultrasound biopsy, birads 4b Narrative PATHOLOGY [facility] - 12/27/2024 10:16 AM CDT EPIC results best viewed via link to PDF [facility] Desiree Parada [facility] [place] [address] Note to Patients: This report may contain a detailed description of human tissue sent by a health care provider to the laboratory for pathologic evaluation. The content of this report is essential for diagnosis and may provide important critical findings. This information may be unfamiliar to patients to review without a medical professional present. It is advised that the patient review this report in the presence of a health care provider who can answer questions and explain the details. SURGICAL PATHOLOGY REPORT FINAL Patient Name: JD GENAO Gender: F : 1940 (Age: 84) Address: [address] [place], [place] [id number] Hospital #: [id number] Taken:12/25/2024 Received:12/25/2024 Reported: 12/27/2024 Patient Type: [facility] Ancillary Service: UNKNOWN Location: Physician(s): Citlali Wilkerson PA Kevin L. Konzen, M.D. Diagnosis: A. Breast, right, 12:00, 3 cm from nipple, needle core biopsy - Scar tissue consistent with prior surgery - Fragments of benign fibroadipose tissue - No atypia or malignancy present krpr/12/27/2024 08:06 By this signature, I attest that the above diagnosis is based upon my personal examination of the slides(and/or other material indicated in the diagnosis). Jamey Pina M.D. Report Electronically Reviewed and Signed Out By Jamey Pina M.D. 12/27/2024 10:16:08 Aislinn Gutierrez M.D. History: The patient is an 84-year-old woman presenting for abnormal mammogram. Operative procedure: Right breast biopsy, BI-RADS 4B. Specimen(s) Received: A: Right breast 12:00 3cmfn 3 cores ultrasound biopsy birads 4b Gross Description: Received in formalin, labeled with the patient s identifiers and right breast 12 o'clock 3 cm FN BI-RADS 4B are three white and yellow cores of fibrofatty tissue (1.0-1.9 cm each in length by 0.2 cm in diameter). Labeled A1 to A2. Jar 0. Placed in formalin immediately after collection. Total fixation time= 26.5 hours. sxst/12/25/2024 17:05 PA(s): Cony Francis By this signature, I attest that the above diagnosis is based upon my personal examination of the slides(and/or other material). Addenda/Procedures The performance characteristics of some immunohistochemical stains, fluorescence in-situ hybridization tests and immunophenotyping by flow cytometry cited in this report (if any) were determined by the Surgical Pathology and Flow Cytometry Departments at [facility] as part of an ongoing water quality analyst program and in compliance with federally mandated regulations drawn from the Clinical Laboratory Improvement Act of 1988 (CLIA '88). Some of these tests rely on the use of analyte specific reagents and are subject to specific labeling requirements by the US Food and Drug Administration. Such diagnostic tests may only be performed in a facility that is certified by the Department of Health and Human Services as a high complexity laboratory under CLIA '88. The FDA has determined that such clearance or approval is not necessary. This test is used for clinical purposes. It should not be regarded as investigational or for research. Nevertheless, federal rules concerning the medical use of analyte specific reagents require that the following disclaimer be attached to the report: This test was developed and its performance characteristics determined by the Surgical Pathology and Flow Cytometry Departments of [facility]. It has not been cleared or approved by the U. S. Food and Drug Administration. IMAGES AND SCANNED DOCUMENTS, IF INCLUDED, ONLY VIEWABLE IN PDF VERSION OF REPORT us Desiree MACHUCA LAB PATHOLOGY ORDERABLES Final Result PATHOLOGY [facility] 3rd Floor [place], [place] [phone] * (ABNORMAL) Diagnostic Mammogram Right W Juan Luis (12/11/2024 9:16 AM CDT) Anatomical Region Laterality Modality Breast Right Mammography 12/11/2024 9:47 AM CDT Impressions 12/11/2024 11:20 AM CDT Irregular, hypoechoic mass at the 12 o'clock position, 3 cm from the nipple at the patient's palpable area of concern along her breast conservation therapy scar. This likely represents an area of fat necrosis, however given that it is new, it remains of moderate suspicion for malignancy. Ultrasound-guided biopsy is recommended. The method of initial detection of finding was patient-reported clinical symptom (Pat). OVERALL FINAL ASSESSMENT: SUSPICIOUS. BI-RADS Category 4B: Moderate suspicion for malignancy. RECOMMENDATION: Ultrasound-guided biopsy of an irregular, hypoechoic mass that o'clock position, 3 cm from the nipple at the patient's palpable area concern along her breast conservation therapy scar. Dr. Rowland discussed the above findings and recommendations with the patient. She has been scheduled for biopsy on 12/25/2024 at 3:00 PM. This facility will contact the referring clinician's office for an order. The radiology attending physician has personally reviewed this study, and had reviewed and/or edited this written report and agrees with it. 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 COMPARISON: Multiple priors, most recently 11/04/2024 TECHNIQUE: Full field digital mammographic views of the RIGHT breast were performed, including computer aided detection (CAD) and digital breast tomosynthesis (DBT). Directed ultrasound evaluation of the RIGHT breast was performed by a trained enterprise data architect and by Dr. Rowland. BREAST PARENCHYMAL COMPOSITION: There are scattered areas of fibroglandular density. MAMMOGRAM FINDINGS: There are changes of RIGHT breast conservation therapy. No new suspicious abnormality in the RIGHT breast. SONOGRAM FINDINGS: Targeted sonogram of the patient's palpable area of concern along the breast conservation therapy scar in the RIGHT breast was performed. At the 12 o'clock position, 3 cm from the nipple there is a 0.7 x 0.4 x 0.6 cm irregular, hypoechoic mass with angular borders. No internal vascularity. This is favored to represent an area of fat necrosis but is difficult to evaluate given overlapping scar. us Desiree MACHUCA IMG MAMMO PROCEDURES Final Resu lt * (ABNORMAL) US Breast Right Limited (12/11/2024 8:52 AM CDT) Anatomical Region Laterality Modality Breast Right Ultrasound 12/11/2024 9:47 AM CDT Impressions 12/11/2024 11:20 AM CDT Irregular, hypoechoic mass at the 12 o'clock position, 3 cm from the nipple at the patient's palpable area of concern along her breast conservation therapy scar. This likely represents an area of fat necrosis, however given that it is new, it remains of moderate suspicion for malignancy. Ultrasound-guided biopsy is recommended. The method of initial detection of finding was patient-reported clinical symptom (Pat). OVERALL FINAL ASSESSMENT: SUSPICIOUS. BI-RADS Category 4B: Moderate suspicion for malignancy. RECOMMENDATION: Ultrasound-guided biopsy of an irregular, hypoechoic mass that o'clock position, 3 cm from the nipple at the patient's palpable area concern along her breast conservation therapy scar. Dr. Rowland discussed the above findings and recommendations with the patient. She has been scheduled for biopsy on 12/25/2024 at 3:00 PM. This facility will contact the referring clinician's office for an order. The radiology attending physician has personally reviewed this study, and had reviewed and/or edited this written report and agrees with it. 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 COMPARISON: Multiple priors, most recently 11/04/2024 TECHNIQUE: Full field digital mammographic views of the RIGHT breast were performed, including computer aided detection (CAD) and digital breast tomosynthesis (DBT). Directed ultrasound evaluation of the RIGHT breast was performed by a trained enterprise data architect and by Dr. Rowland. BREAST PARENCHYMAL COMPOSITION: There are scattered areas of fibroglandular density. MAMMOGRAM FINDINGS: There are changes of RIGHT breast conservation therapy. No new suspicious abnormality in the RIGHT breast. SONOGRAM FINDINGS: Targeted sonogram of the patient's palpable area of concern along the breast conservation therapy scar in the RIGHT breast was performed. At the 12 o'clock position, 3 cm from the nipple there is a 0.7 x 0.4 x 0.6 cm irregular, hypoechoic mass with angular borders. No internal vascularity. This is favored to represent an area of fat necrosis but is difficult to evaluate given overlapping scar. Desiree MACHUCA IMG MAMMO PROCEDURES Final Resu lt from Last 3 Months Insurance [facility] MEDICARE ADVANTAGE [facility] MEDICARE ADVANTAGE UNIT [address] MEDICARE ADVANTAGE UNIT [address] MEDICARE ADVANTAGE Care Teams Traffic Maintenance Officer Relationship Specialty Start Date End Date Adam Mock MD PCP - General Internal Medicine 11/06/17 Yuliya Oliveira MD PhD [address] [facility] [address] [place] [address] Radiation Oncologist Radiation Oncology 02/08/21 Joanie Crawley MD [address] [place] [address] Medical Oncologist/Batchmaker Medical Oncology 12/31/21
--- OUTSIDE RECORDS SUMMARY | 2025-02-18 14:34 | XMS_ITS | Clinical Summary ---
Author Organization [facility] Address [facility]ly [facility] [place] [address] Care Team Providers Care Montessori Toddler Teacher Name Role Phone Adam Mock MD Primary Care Provider [phone] Allergies Active Allergy Reactions Criticality Noted Date Comments Sulfa Antibiotics Swelling,Redness 02/07/2023 Medications anastrozole (ARIMIDEX) 1 MG tablet Take 1 tablet by mouth daily. Active levothyroxine (SYNTHROID) 100 MCG tablet Take 1 tablet (100 mcg total) by mouth every morning. Active mirabegron ER (MYRBETRIQ) 25 MG 24 hr tablet Take 2 tablets (50 mg total) by mouth daily. Active Calcium Carbonate Antacid 600 MG Chew Tab Chew 1 tablet by mouth 2 (two) times a day. Active B complex-C Cap capsule Take 1 capsule by mouth daily. Active vitamin D3 (CHOLECALCIFERO L) 25 mcg tablet Take 1 tablet (25 mcg total) by mouth daily. Dosage unknown Active loratadine (CLARITIN) 10 MG tablet Take 1 tablet (10 mg total) by mouth daily. Active Ascorbic Acid (VITAMIN C) 100 MG tablet Take 1 tablet (100 mg total) by mouth 2 (two) times daily. Unknown dosage Active Multiple Vitamin (MULTIVITAMIN ADULT OR) Take by mouth daily. Active Docusate Sodium (STOOL SOFTENER OR) Take 2 tablets by mouth daily. Active Active Problems No known active problems Social History Tobacco Use Types Packs/Day Years Used Date Smoking Tobacco: Never Smokeless Tobacco: Never Alcohol Use Standard Drinks/Week Comments Yes 10 (1 standard drink = 0.6 oz pu re alcohol) 1-2 drinks per day Comments No Sex and Gender Information Value Date Recorded Sex Assigned at Not on file Legal Sex Female 8:09 AM CDT Gender Identity Not on file Sexual Orientation Not on file Last Filed Vital Signs Vital Sign Reading Time Taken Comments Blood Pressure 139/80 02/13/2023 7:51 AM CDT Pulse 73 02/13/2023 7:51 AM CDT Temperature 36.7 C (98.1 F) 02/13/2023 7:07 AM CDT Respiratory Rate 18 02/13/2023 7:07 AM CDT Oxygen Saturation 99% 02/13/2023 7:51 AM CDT Inhaled Oxygen Concentration - - Weight 52.2 kg (115 lb) 02/07/2023 11:02 AM CDT Height 152.4 cm (5') 02/07/2023 11:02 AM CDT Body Mass Index 22.46 02/07/2023 11:02 AM CDT Plan of Treatment Health Maintenance Due Date Last Done Comments DTaP, Tdap and Td Vaccines (1 - Tdap) 1959 Annual Medicare Wellness Visit 2006 Dexa Scan (General) 2006 RSV Immunization or 60+ Years (1 - 1-dose 75+ series) 2016 COVID-19 Vaccine ( season) 2025 01/26/2022, 08/20/2021, 01/06/2021, Additional history exists Zoster Vaccines Completed 07/10/2018, 05/06/2018 Pneumococcal Vaccine: 50+ Years Completed 07/28/2022, 04/06/2020 Meningococcal B Vaccine Aged Out No l onger eligible based on patient's age to complete this topic Meningococcal Vaccine Aged Out No priyank mela eligible based on patient's age to complete this topic RSV Immunizations Under 20 Months Aged Out No longer eligible based on patient's age to complete this topic Medical Devices Implanted Type Area Activity Assistant Device Identifier Shelf Expiration Date Model / Serial / Lot Iol [employer] Simplicity Dcb00 - [id number] Implanted:Qty: 1 on 02/13/2023 by Nick Rodriguez MD at [facility] Lens Left: Eye [employer] [id number] 08/16/2025 DCB00 / [id number] / Insurance [facility] MEDICARE Care Teams Montessori Toddler Teacher Relationship Specialty Start Date End Date Adam Mock MD [facility] [address] [place] [id number] PCP - General INTERNAL MEDICINE 02/09/23
--- OUTSIDE RECORDS SUMMARY | 2025-02-18 14:34 | XMS_ITS ---
Author Organization [facility] Medical [facility] [address] Address [address] [facility] [place] [address] Care Team Providers Care Employment Specialist Name Role Phone Adam Mock MD Primary Care Provider [phone] Yuliya Oliveira MD PhD Unavailable [phone] Joanie Crawley MD Unavailable [phone] Active Problems Problem Noted Date Diagnosed Date Abnormal finding on breast imaging 12/11/2024 Anxiety 11/29/2023 Overview (07/26/2024): Stable on Lexapro doing well. Hyperlipidemia 01/27/2023 Assessment & Plan (07/26/2024 10:18 AM CAN VACUUM TESTER): Lipid reviewed doing well. Assessment & Plan (01/27/2023 10:30 AM CDT): Lipids at goal Continue with lifestyle modifications Acquired hypothyroidism 01/27/2023 Assessment & Plan (07/26/2024 10:18 AM CAN VACUUM TESTER): Check labs. Assessment & Plan (01/27/2023 10:31 AM CDT): July 2022 labs WNL Clinically euthyroid Continue 100mcg LVT daily Overactive bladder 01/27/2023 Assessment & Plan (07/26/2024 10:18 AM CAN VACUUM TESTER): Continue on Myrbetriq. 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 Follows with Oncology. Remains on anastrozole. He had recent DEXA scan doing well Calculus of gallbladder with out cholecystitis without obstruction 01/25/2019 Overview (01/25/2019): Added automatically from request for surgery [id number] Current Treatment and Therapy Plans No current plan information found. Past Treatment and Therapy Plans No past plan information found. Radiation Treatments * Course C1 03/02/2021 - 03/08/2021 Treatment Period Energy Fraction Dose Fractions Total Dose Plans Planned RUOQ APBI 03/02/2021 - 03/08/2021 600 5 / 3,000 Reference Points Delivered rt apbi dpv 03/02/2021 - 03/08/2021 3,000 Resolved Problems Problem Noted Date Diagnosed Date [...]
--- OUTSIDE RECORDS SUMMARY | 2025-02-18 14:34 | XMS_ITS | Patient Health Record ---
Author Organization [facility] Address [address] [place], [place] [id number] Care Team Providers Care Reconditioner Name Role Phone Adam Mock Primary Care Provider UnavailKHANH Carpenter Unavailable [phone] KHANH LARA Unavailable [phone] Allergies Allergen (clinical drug ingredient) Drug/Non Drug Allergy documented on EMR Reaction Allergy Type Onset Date Status Substance with sulfonamide structure and antibacterial mechanism of action (substance) Sulfa Antibiotics Unknown Drug Allergy Active Reason For Referral No Information Vital Signs Height-cm 154.94 cm 02/03/2025 Weight-kg 52.16 kg 02/03/2025 Height 61 in 02/03/2025 Weight 115 lbs 02/03/2025 BMI 21.73 kg/m2 02/03/2025 Encounters Encounter Location Date Provider Diagnosis [facility] [address] [place], [place] [id number] 02/03/2025 KHANH LARA Tinea unguium B35.1 ; Acquired keratosis [keratoderma] palmaris et plantaris L85.1 ; 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, bilateral [...] utilizing a #15 blade 02/03/2025 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
--- OUTSIDE RECORDS SUMMARY | 2025-02-18 14:35 | XMS_ITS | Data Portability ---
Author Organization [place] [facility] [place] [facility] Address [address] [place] [address] Assessment No assessment recorded. Plan of Treatment Reminders Order Date Submit Date Provider Last Modified By Organization Details Last Modified Time Details Appointments None recorded. Lab pistachio ige, serum 2019 [facility], [address] , [facility], [place], [address], 0 10:53:53 Referral None recorded. Procedures None recorded. Surgeries None recorded. Imaging None recorded. Medication Orders Auvi-Q 0.3 mg/0.3 mL injection, auto-injec tor 2019 INTERFACE [employer], [employer] (New Address), [address] [place] [address], [facility] 2 4th Floor [address] [place] [address], [phone], 0 11:47:57 Patient TargetsNo targets recorded. Patient Instructions Encounter Date Encounter Id Patient Instructions Last Modified By Organization Details Last Modified Time 12/24/[id number] food allergy: care instructions [email or web address] Not available 12/24/2019 11:45:19 Reason for Referral None Reported. Results Created Date Observation Date Name Description Value Unit Range Abnormal Flag Note LastModifiedBy Organization Detail LastModifiedTime 12/24/1912/27/2019 pista karlos ige, serum [id number] pistachio nut <0.10 kU/L class 0 Level s of Speci fic IgE Class Descr iptio n of Class ----- ----- ----- ----- ----- -- ----- ----- ----- ----- ----- < 0.10 0 Negat cynthia 0.10 - 0.31 0/I Equiv ocal/ Low 0.32 - 0.55 I Low 0.56 - 1.40 II Moder ate 1.41 - 3.90 III High 3.91 - 19.00 IV Very High 19.01 - 100.0 0 V Very High >100. 00 Very High Not Available [facility] ([facility]) [address] [facility], [place], [address], 12/27/2019 10:53:52 Result Notes None recorded. 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 Medical Equipment None Reported. Allergies Allergen ID Allergen Name Allergen Category Reaction Reaction Severity Criticality Documentation Date Start Date Code Code System Note Provider Name and Address Organization Details Recorded Time 83954 Substance with sulfonami de structure and antibacte rial mechanism of action (substanc e) medicatio n Not available Not available Not available 12/24/2019 41917 8003 SNOMED martha guillen [place], [place] - [facility], 0 11:27:56 Medications Name Sig Start Date Stop Date Status Note LastModified by Organization Details LastModified Time amoxicillin 500 mg capsule 12/23 completed Not Available Not Available Not Available valacyclovi r 1 gram tablet TK 1 T PO TID FOR 10 DAYS active Not Available Not Available No t Available fluorouraci l 5 % topical cream APPLY THIN LAYER TO NOSE AND UPPER LIP TWICE DAILY FOR 4 WEEKS active Not Available Not Available No t Available ciprofloxac in 500 mg tablet 12/23 completed Not Available Not Available Not Available ciclopirox 8 % topical solution APPLY ON THE SKIN NIGHTLY, DO NOT WASH OFF FOR 8 HOURS 12/23 completed Not Available Not Available Not Available levothyroxi ne 100 mcg tablet active Not Available Not Available Not Available mupirocin 2 % topical ointment active Not Available Not Available Not Available doxycycline hyclate 20 mg tablet active Not Available Not Available No t Available hydrocortis one 2.5 % topical ointment active Not Available Not Available Not Available chlorhexidi ne gluconate 0.12 % mouthwash 12/23 completed Not Available Not Available Not Available Myrbetriq 25 mg tablet,exte nded release active Not Available Not Available Not Available Auvi-Q 0.3 mg/0.3 mL injection, auto-inject or Take 1 auto every day by injection route. 2019 active Not Available Not Available Not Avai lable Fluzone High-Dose 2019-20 (PF) 180 mcg/0.5 mL intramuscul ar syringe TO BE ADMINISTE RED BY PHARMACIS T FOR IMMUNIZAT ION 12/23 completed Not Available Not Available Not Available Vitals Date Recorded Body height Body mass index (BMI) Body weight Heart rate Oxygen saturation Oxygen saturation in Arterial blood by Pulse oximetry Respiratory rate Body temperature Systolic And Diastolic Provider Name and Address Organization Details Last Updated DateTime 0 154.94 cm 20.6 kg/m2 79280.5 7 g 73 /min 97 % 97 % 17 /min 97.7 [degF] 110/68 mm[Hg] martha DE [place] - [facility], 0 11:26:42 Social History None recorded. Functional Status None recorded. Mental Status None recorded. Family History Nothing Reported. Medical History No medical history recorded. Gynecological HistoryNo gynecological history recorded. 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 More than 30 years ago she had had a [place] Light and some pistachios and had a systemic allergic reaction. This recurred a second time and she required adrenaline. She has since avoided pistachios but she would like to know if she is truly allergic she does carry adrenaline. Michael Pagan MD [address], [place], [address], [facility] [place] [facility], 12/24/2019 12:20:02 OBGyn Episode No OBEpisode recorded.
[2025-02-18 14:37] LABS: Hematocrit 35.3 % (37.0-47.0); Hemoglobin 12.0 g/dL (12.0-15.0); Immature Granulocyte Percent A 0.4 % (0-0.5); Lymphocytes Absolute Auto 1.84 K/mm3 (0.9-3.2); Mean Corpuscular HGB Conc 34.0 g/dl (32-36); Mean Corpuscular Hemoglobin 32.2 pg (26-34); Mean Corpuscular Volume 94.6 fl (80-100); Nucleated Red Blood Cells Absolute Auto 0.000 K/mm3 (0.0-0.012); Nucleated Red Blood Cells Perc 0.0 % (0.0-0.2); Platelet Count Result 247 k/mm3 (150-375); Red Blood Count 3.73 M/mm3 (4.2-5.4); White Blood Count 5.2 K/mm3 (4.5-10.0)
[2025-02-18 16:36] LABS: Iron 95 ug/dL (37-170)
[2025-02-18 16:39] LABS: Alanine Aminotransferase 19 U/L (6-35); Albumin Level 4.5 g/dL (3.5-5.1); Alkaline Phosphatase 62 U/L (38-126); Anion Gap 7 mmol/L (4-12); Aspartate Amino Transferase 28 U/L (14-36); Bilirubin,Total 0.4 mg/dL (0.2-1.3); Blood Urea Nitrogen 15 mg/dL (7-17); Calcium 9.6 mg/dL (8.4-10.2); Carbon Dioxide 27 mmol/L (22-30); Chloride 99 mmol/L (98-107); Estimated Glomerular Filt Rate > 60; Glucose 94 mg/dL (65-110); Potassium 4.1 mmol/L (3.4-5.0); Sodium 133 mmol/L (137-145); Total Protein 7.9 g/dL (6.3-8.2)
[2025-02-18 16:46] LABS: Percent Iron Saturation 27 % (20-50)
[2025-02-18 17:13] LABS: Ferritin 102.00 ng/mL (11.1-264)
[2025-02-18 17:53] LABS: Vitamin B12 925.0 pg/mL (239-931)
[2025-02-19 13:08] LABS: Albumin 3.8 g/dL (2.9-4.4); Alpha-1-Globulin 0.2 g/dL (0.0-0.4); Alpha-2-Globulin 0.7 g/dL (0.4-1.0); Gamma Globulin 1.4 g/dL (0.4-1.8)
== END 2025-02-18 14:21 | disposition home or self-care (01) ==
LOC: ANHLAB 14:21
PROVIDERS: PCP Internal Medicine; Visit Provider Internal Medicine Hematology & Oncology
DX: D64.9 Anemia, unspecified (principal)
CPT/HCPCS: 36415; 80053; 82607; 82728; 82746; 83540; 83550; 83615; 84155; 84165; 84238; 85025